=== PATIENT | male | born 1990 | race Caucasian/White ===

== ENCOUNTER 2018-11-03 21:30 | Inpatient (IN) | payer OTHER, SELFPAY ==
[2018-11-03] MEDS ORDERED: Sodium Chloride 0.9% 10 ML ONE (21:36)
[2018-11-03] MEDS ORDERED: CEFAZOLIN 1 GM VIAL ONE (23:11)
[2018-11-04 01:36] VITALS: BMI 35.4
[2018-11-04] MEDS ORDERED: Morphine 4 MG/ML VIAL SLOW IVP PRN (01:36)
[2018-11-04] MEDS ORDERED: Promethazine HCl 25 MG/ML VIAL IM PRN ×2 (01:37→13:27)
[2018-11-04] MEDS ORDERED: Vancomycin HCl 1 GM in Premix Bag 1 BAG IVPB SCH (01:45)
--- NOTE | 2018-11-04 05:30 | ER ---
DATE OF SERVICE: CHIEF COMPLAINT: Right hand multiple digit lacerations. 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 He has no history of previous injury to those fingers. PAST MEDICAL HISTORY: Negative for diabetes. Negative for hypertension. Past history of ACL and lateral collateral ligament right knee injury, and a pilonidal cyst. PAST SURGICAL HISTORY: Pilonidal cyst operative intervention and lateral collateral ligament and ACL reconstruction. PHYSICAL EXAMINATION: On exam today: The patient is a mildly obese, alert male, awake, alert, and oriented x3, with his with him, there is no discourse. The patient has at the right upper extremity 1.5 seconds capillary refill in pink digits in both radial and ulnar aspect of all digits, most especially the small, ring, and long. At the long finger, he has a 1.5 cm oblique laceration over the midportion of the middle phalanx, more ulnar than radial, but he has a normal two-point discrimination in radial and ulnar aspect of the digits with grossly intact flexor digitorum profundus and superficialis function. The patient had at the middle finger a 2 cm transverse more than oblique laceration over the junction of the middle and proximal third of the middle phalanx. Totally absent flexor digitorum profundus function and some weak, but intact flexor digitorum superficialis function, 1 second refill and no gross contamination. Finally, the right small finger shows the laceration of mid third and proximal third of the palmar aspect of the middle phalanx with absent flexor profundus, two point discrimination in the radial and ulnar aspect, and the FDS shows some trace if not full flexion. ASSESSMENT AND RECOMMENDATIONS: Laceration deep small finger, ring finger and middle finger with no vascular compromise, but definitely has evidence of injury to the digital nerve, so I recommend digital nerve exploration neuroplasty, and repair of all damaged structures. The patient was counseled on all risks to include infection, failure, scar, pain, need for another operation, having difficulty to close and he still agrees to proceed. Job ID: [id number]
[2018-11-04] MEDS ORDERED: Fentanyl 100 MCG/2 ML VIAL ONE ×3 (06:42→13:39)
[2018-11-04] MEDS ORDERED: Fentanyl 250 MCG/5 ML VIAL ONE (11:13)
[2018-11-04] MEDS ORDERED: Bacitracin Zinc Ointment 30 gm TUBE ONE (12:35)
[2018-11-04] MEDS ORDERED: Ondansetron HCl/PF 4 MG/2 ML Vial IVP PRN (13:27)
[2018-11-04] MEDS ORDERED: Promethazine HCl 25 MG/ML VIAL SLOW IVP PRN (13:27)
[2018-11-04] MEDS ORDERED: PROPOFOL 200 MG/20 ML VIAL ONE (16:08)
[2018-11-04] MEDS ORDERED: Dexamethasone 20 MG/5 ML VIAL ONE (16:08)
[2018-11-04] MEDS ORDERED: Ondansetron PF 4 MG/2 ML Vial ONE (16:08)
[2018-11-04] MEDS ORDERED: Lidocaine 1% PF 5 ML VIAL ONE (16:08)
[2018-11-04] MEDS: CEFAZOLIN 2 GM in Sodium Chloride 0.9% 100 ML IVPB SCH (20:16)
[2018-11-05] MEDS: CEFAZOLIN 2 GM in Sodium Chloride 0.9% 100 ML IVPB SCH (01:52)
[2018-11-05] MEDS: HYDROcodone/Acetaminophen 10/325 mg Tablet PO PRN ×2 (02:22→10:12)
[2018-11-05 07:52] VITALS: BP 119/72; TEMP 98.2
[2018-11-05] MEDS ORDERED: CEFAZOLIN 2 GM, IV Admixture Fee-Chemo 1 UNITS in Sodium Chloride 0.9% 100 ML IVPB SCH ×2 (08:00→14:00)
--- NOTE | 2018-11-05 12:03 | OP ---
DATE OF PROCEDURE: 11/05/2018 DATE OF INJURY: November 03, 2018. PREOPERATIVE DIAGNOSES: 1. Long finger 3-cm wound without neurovascular or tendon laceration. 2. Ring finger 3-cm wound with complete flexor digitorum profundus laceration, distal stanley injury with oblique zone 2 and zone 1 involvement, 2 at the ring finger is ulnar digital nerve laceration, at the small finger complete flexor digitorum profundus laceration, zone 2 without flexor digitorum superficialis laceration. 3. Digital nerve laceration of ulnar digital nerve. POSTOPERATIVE DIAGNOSES: 1. Long finger 3-cm wound without neurovascular or tendon laceration. 2. Ring finger 3-cm wound with complete flexor digitorum profundus laceration, distal stanley injury with oblique zone 2 and zone 1 involvement, 2 at the ring finger is ulnar digital nerve laceration, at the small finger complete flexor digitorum profundus laceration, zone 2 without flexor digitorum superficialis laceration. 3. Digital nerve laceration of ulnar digital nerve. PROCEDURES PERFORMED: 1. Long finger: a. Debridement of wound. b. Closed the 3 cm wound. c. Digital nerve neuroplasty x2, radial and ulnar. 2. Ring finger: a. Debridement of wound. b. Closure of wound 3 cm. c. Flexor digitorum profundus repair, zone 2 with intact flexor digitorum superficialis. 3. Digital nerve neuroplasty. 4. Ulnar digital nerve microscopic repair. 5. At the small finger: a. 3-cm wound laceration repair. b. Debridement of wound. c. Repair of zone 2 flexor digitorum profundus laceration. d. Digital nerve neuroplasty microscopic. e. Repair of ulnar digital nerve. INDICATIONS: The patient grabbed a knife inadvertently with flexor digits causing injuries listed above. The injury took place approximately 12 hours before surgery took place and he had no gross contamination. DESCRIPTION OF PROCEDURE: After successful general endotracheal anesthesia, the limb was prepped and draped. We initiated time-out and then we exsanguinated the limb and inflated the tourniquet to 250 mmHg pressure. We then took all the transverse laceration that was located in the midportion of the long finger and small finger, palmar aspect of the middle phalanx and slightly distal 3rd aspect of the ring finger and extended them, so we could visualize all the structures. First, we debrided the wound using the following techniques: 1. Excisional technique. 2. Use of tenotomy scissors, Haakon blade, Adson's. There was no complication and irrigated with a total of 3 L normal saline and Pulsavac pressure. The incision was down to but not including the bone in depth and there were no complications. Once we finished the debridement, we proceeded with small finger first. The small finger and ring finger tendons had retracted back into the palm, so we had to make an incision in the palm, localize them, used a 22-gauge wire with an attached Prolene suture to pull it through at the small finger first the ulnar pulleys. Then, the small finger laceration was between the A3 and A4 pulleys clearly in zone 2. We inspected flexor digitorum profundus and found it was lacerated and flexor digitorum superficialis was not. Once we had done this, we made our repair between the pulleys using a Daly-Arianna 4-0 Supramid suture with excellent tension on the wound. Before we tied the sutures, we localized the digital nerve. We also used 6-0 running Prolene epitendinous suture, back wall first before we tied the Supramid. Then, we completed the repair by doing the palmar aspect once we tied the Supramid and cut the suture. This gave excellent position of the tendon mass. We then proceeded to the ring finger. Here, we also extended incision from finished debridement, done a microscopic neuroplasty indeterminate that they had an ulnar nerve laceration, but radial nerve was intact. We then proceeded with the tendon repair with the only difference being that here, there was destruction to the A4 stanley and it was not salvageable. I did not elect to do reconstruction at this time. The A1 and A2 pulleys were easily preserved, tendon was passed, repair was made right at the level of the proximal end of the remnant of the A4 stanley. In the same technique, Addy-Arianna technique with backwall first 6-0 epitendinous suture and then tied the 4-0 Supramid with excellent apposition and no gap formation seen. We finished the epitendinous suture palmarly with 6-0 Prolene and cut it. At this point, the tourniquet had been deflated prior to completing the ring finger. We then proceeded to the small finger, we finished inspection of the tendon, digital neuroplasty including radial and ulnar side, found to be intact and we closed this wound while the tourniquet was deflated. We did not reinflate the tourniquet. We proceeded now, with the digital nerve neuroplasty and visualized that although the ulnar nerve of small finger was lacerated. The ulnar artery was intact as was the radial neurovascular bundle. We then performed a repair using a 9-0 Nurolon, where the nerve laceration was slightly proximal to the tendon laceration. We then repeated the same steps on the ring finger, where the ulnar digital nerve was lacerated. However here, the radial neurovascular bundle was intact and the ulnar artery was as well. We then irrigated these 2 wounds with bulb syringe, and closed them with 4-0 nylon interrupted simple pattern. We then closed the harvest site in the palm with 4-0 nylon interrupted pattern. He received a total of 30 mL of 0.5% Marcaine with dividing equally between the 3 digits, he was placed in bacitracin, Adaptic dressing. Bulky hand dressing with the web spaces spread and protected. PIP joints were brought to about -30 degrees of flexion and the ring finger and small finger had increased tension compared to other two in flexed position. Tenodesis effect showed pull-through. We then had the patient leave the operating room without evidence of anesthetic or operative complication. Job ID: [id number]
== END 2018-11-05 10:30 | disposition home or self-care (01) | DRG 42 ==
LOC: ERS 21:30 → 3SE 11-04 01:25
PROVIDERS: ADMIT Orthopaedic Surgery Hand Surgery; ATTEND Orthopaedic Surgery Hand Surgery
PROC: 01Q60ZZ Repair Radial Nerve, Open Approach (ICD-10-PCS; principal; 2018-11-05)
PROC: 01Q40ZZ Repair Ulnar Nerve, Open Approach (ICD-10-PCS; 2018-11-05)
PROC: 0LQ70ZZ Repair Right Hand Tendon, Open Approach (ICD-10-PCS; 2018-11-05)
DX: S54.01XA Injury of ulnar nerve at forearm level, right arm, initial encounter (principal); S64.496A Injury of digital nerve of right little finger, initial encounter; S61.216A Laceration without foreign body of right little finger without damage to nail, initial encounter; S61.214A Laceration without foreign body of right ring finger without damage to nail, initial encounter; S61.212A Laceration without foreign body of right middle finger without damage to nail, initial encounter; Y28.1XXA Contact with knife, undetermined intent, initial encounter; Y93.89 Activity, other specified; Y92.090 Kitchen in other non-institutional residence as the place of occurrence of the external cause; Y99.9 Unspecified external cause status
CPT/HCPCS: J0690; J2270; J3010; J3370; J3490